=== PATIENT | male | born 1945 | race Caucasian/White ===

== ENCOUNTER 2017-12-23 17:31 | Emergency (ER) | payer OTHER ==
[~2017-12-23] VITALS: Ht 188 cm; Wt 155.0 kg
[2017-12-23] MEDS ORDERED: LANTUS100 UNIT/M SC (18:06)
[2017-12-23] MEDS ORDERED: PRADAXA150 MG PO (18:06)
[2017-12-23] MEDS ORDERED: LANOXIN0.125 MG PO (18:07)
[2017-12-23] MEDS ORDERED: ATORVASTATIN CA40 MG PO (18:08)
[2017-12-23] MEDS ORDERED: LOSARTAN POT50 MG PO (18:09)
[2017-12-23] MEDS ORDERED: RANITIDINE150 M1 PO (18:09)
[2017-12-23] MEDS ORDERED: DILTIAZEM240 MG PO (18:11)
[2017-12-23] MEDS ORDERED: TRAZODONE50 MG PO (18:12)
[2017-12-23] MEDS ORDERED: OXYBUTYNIN5 M1 PO (18:13)
[2017-12-23] MEDS ORDERED: BUSPIRONE5 MG PO (18:15)
[2017-12-23] MEDS ORDERED: GLIPIZIDE5 M2 PO (18:16)
[2017-12-23] MEDS ORDERED: GLIPIZIDE5 MG PO (18:18)
[2017-12-23 18:19] LABS: HEMATOCRIT 44.9 % (39.0-50.0); IMMATURE GRANULOCYTES 0.8 % (0.0-5.0); MEAN CELL VOLUME 89.1 fL CALC (80.0-100.0); MEAN CORPUSCULAR HGB 29.8 pG CALC (26.0-32.0); MEAN CORPUSCULAR HGB CONC 33.4 g/L CALC (32.0-36.0); NEUT# 17.16 thou/uL (1.82-7.42); RED BLOOD COUNT 5.04 mill/uL (4.70-6.10); RED CELL DISTRI WIDTH 14.3 % (11.5-15.5)
[2017-12-23 18:37] LABS: INTERNATIONAL NORMALIZED RATIO 1.1 RATIO (0.7-1.3); PROTHROMBIN TIME 12.4 SECONDS (9.0-12.5)
[2017-12-23 18:55] VITALS: BP 151/82
[2017-12-23 19:02] LABS: ALBUMIN 4.2 g/dL (3.2-5.0); ALKALINE PHOSPHATASE 79 u/l (38-126); ANION GAP 15 (6-22 (CALC)); BILIRUBIN, TOTAL 0.8 mg/dL (0.0-1.4); BUN 14 mg/dL (8-23); BUN/CREATININE RATIO 20 (12-20 (CALC)); CARBON DIOXIDE 28 mmol/l (22-30); CHLORIDE 98 mmol/l (95-108); CREATININE 0.7 mg/dL (0.7-1.3); GFR > 60 ML/MIN (>=60 (CALC)); GFR FOR AFR.AMER. > 60 ML/MIN (>=60 (CALC)); SGOT/AST 21 u/l (19-48); SGPT/ALT 30 u/l (11-66); SODIUM 137 mmol/l (137-146); TOTAL PROTEIN 7.8 g/dL (6.3-8.2)
== END 2017-12-23 18:55 | disposition short-term general hospital (02) | DRG 66 ==
LOC: ED 17:31
PROVIDERS: Emergency Medicine
DX: I63.9 Cerebral infarction, unspecified (principal); R27.0 Ataxia, unspecified; R47.9 Unspecified speech disturbances; I48.91 Unspecified atrial fibrillation; E11.9 Type 2 diabetes mellitus without complications; F32.9 Major depressive disorder, single episode, unspecified; K21.9 Gastro-esophageal reflux disease without esophagitis

== ENCOUNTER 2018-01-13 15:24 | Inpatient (IN) | payer OTHER ==
[~2018-01-13] VITALS: Ht 188 cm; Wt 156.0 kg
[~2018-01-13 15:24] MED LIST: ATORVASTATIN CA40 MG PO; BUSPIRONE5 MG PO; DILTIAZEM240 MG PO; GLIPIZIDE5 M2 PO; GLIPIZIDE5 MG PO; LANOXIN0.125 MG PO; LANTUS100 UNIT/M SC; LOSARTAN POT50 MG PO; OXYBUTYNIN5 M1 PO; PRADAXA150 MG PO; RANITIDINE150 M1 PO; TRAZODONE50 MG PO
[2018-01-13 18:20] LABS: HEMATOCRIT 42.4 % (39.0-50.0); HEMOGLOBIN 14.3 g/dl (14.0-18.0); MEAN CELL VOLUME 89.3 fL CALC (80.0-100.0); MEAN CORPUSCULAR HGB 30.1 pG CALC (26.0-32.0); MEAN CORPUSCULAR HGB CONC 33.7 g/L CALC (32.0-36.0); NEUT# 17.27 thou/uL (1.82-7.42); RED BLOOD COUNT 4.75 mill/uL (4.70-6.10); RED CELL DISTRI WIDTH 14.1 % (11.5-15.5)
[2018-01-13 18:35] LABS: ALBUMIN 4.2 g/dL (3.2-5.0); ALKALINE PHOSPHATASE 72 u/l (38-126); ANION GAP 16 (6-22 (CALC)); BILIRUBIN, TOTAL 0.5 mg/dL (0.0-1.4); BUN 15 mg/dL (8-23); BUN/CREATININE RATIO 21 (12-20 (CALC)); CARBON DIOXIDE 29 mmol/l (22-30); CHLORIDE 101 mmol/l (95-108); CREATININE 0.7 mg/dL (0.7-1.3); GFR > 60 ML/MIN (>=60 (CALC)); GFR FOR AFR.AMER. > 60 ML/MIN (>=60 (CALC)); POTASSIUM 4.1 mmol/l (3.5-5.1); SGOT/AST 22 u/l (19-48); SGPT/ALT 34 u/l (11-66); SODIUM 142 mmol/l (137-146); TOTAL PROTEIN 7.4 g/dL (6.3-8.2)
[2018-01-13 19:34] LABS: URINE BILIRUBIN - DIPSTICK NEGATIVE (NEGATIVE); URINE BLOOD DIPSTICK LARGE (NEGATIVE); URINE COLOR YELLOW; URINE GLUCOSE - DIPSTICK NEGATIVE (NEGATIVE); URINE KETONE TRACE mg/dL (NEGATIVE); URINE LEUK ESTERASE NEGATIVE (NEGATIVE); URINE NITRITE - DIPSTICK NEGATIVE (Negative); URINE PROTEIN - DIPSTICK >=300 mg/dL (NEG-TRACE); URINE SPECIFIC GRAVITY >=1.030
[2018-01-13 19:35] LABS: URINE CLARITY HAZY
[2018-01-13 19:48] LABS: URINE CALCIUM OXALATE CRYSTALS FEW lpf
[2018-01-13 23:00] VITALS: BP 173/88
[2018-01-13 23:15] VITALS: BP 173/88
[2018-01-13 23:30] VITALS: BP 160/89
[2018-01-13 23:45] VITALS: BP 161/84
[2018-01-14] VITALS (8 sets, daily range): BP systolic 127–192; BP diastolic 79–101
[2018-01-14 16:04] LABS: URINE BILIRUBIN - DIPSTICK NEGATIVE (NEGATIVE); URINE BLOOD DIPSTICK MODERATE (NEGATIVE); URINE COLOR YELLOW; URINE GLUCOSE - DIPSTICK NEGATIVE (NEGATIVE); URINE KETONE NEGATIVE (NEGATIVE); URINE LEUK ESTERASE NEGATIVE (Negative); URINE NITRITE - DIPSTICK NEGATIVE (Negative); URINE PH 5.5 (4.5-8.0); URINE PROTEIN - DIPSTICK 100 mg/dL (NEG-TRACE); URINE SPECIFIC GRAVITY >=1.030; URINE UROBILINOGEN - DIPSTICK 0.2 E.U./dL (0.2)
[2018-01-14 16:46] LABS: URINE CLARITY CLEAR
[2018-01-14 16:49] LABS: URINE WBC 0-2 WBC/hpf (0-5)
[2018-01-15] VITALS (7 sets, daily range): BP systolic 121–175; BP diastolic 65–86
[2018-01-15 05:18] LABS: HEMATOCRIT 39.5 % (39.0-50.0); HEMOGLOBIN 13.1 g/dl (14.0-18.0); IMMATURE GRANULOCYTES 0.7 % (0.0-5.0); MEAN CELL VOLUME 91.9 fL CALC (80.0-100.0); MEAN CORPUSCULAR HGB 30.5 pG CALC (26.0-32.0); MEAN CORPUSCULAR HGB CONC 33.2 g/L CALC (32.0-36.0); NEUT# 9.56 thou/uL (1.82-7.42); RED BLOOD COUNT 4.3 mill/uL (4.70-6.10); RED CELL DISTRI WIDTH 14.3 % (11.5-15.5)
[2018-01-15 05:42] LABS: ALBUMIN 3.6 g/dL (3.2-5.0); ALKALINE PHOSPHATASE 70 u/l (38-126); ANION GAP 13 (6-22 (CALC)); BILIRUBIN, TOTAL 0.7 mg/dL (0.0-1.4); BUN 10 mg/dL (8-23); BUN/CREATININE RATIO 15 (12-20 (CALC)); CARBON DIOXIDE 30 mmol/l (22-30); CHLORIDE 100 mmol/l (95-108); CREATININE 0.7 mg/dL (0.7-1.3); GFR > 60 ML/MIN (>=60 (CALC)); GFR FOR AFR.AMER. > 60 ML/MIN (>=60 (CALC)); MAGNESIUM 1.7 mg/dL (1.6-2.3); POTASSIUM 3.6 mmol/l (3.5-5.1); SGOT/AST 20 u/l (19-48); SGPT/ALT 24 u/l (11-66); SODIUM 139 mmol/l (137-146); TOTAL PROTEIN 6.6 g/dL (6.3-8.2)
[2018-01-15] MEDS ORDERED: TRAZODONE50 MG PO (11:04)
[2018-01-16 04:15] VITALS: BP 148/92
[2018-01-16 07:46] VITALS: BP 150/80
[2018-01-16 11:07] VITALS: BP 128/70
[2018-01-16 15:06] VITALS: BP 155/75
[2018-01-16 20:00] VITALS: BP 134/71
[2018-01-16 23:48] VITALS: BP 140/79
[2018-01-17 04:15] VITALS: BP 152/89
[2018-01-17 05:13] LABS: HEMATOCRIT 37.3 % (39.0-50.0); HEMOGLOBIN 12.3 g/dl (14.0-18.0); MEAN CELL VOLUME 92.6 fL CALC (80.0-100.0); MEAN CORPUSCULAR HGB 30.5 pG CALC (26.0-32.0); NEUT# 8.54 thou/uL (1.82-7.42); RED BLOOD COUNT 4.03 mill/uL (4.70-6.10); RED CELL DISTRI WIDTH 14.3 % (11.5-15.5)
[2018-01-17 05:35] LABS: ALBUMIN 3.2 g/dL (3.2-5.0); ALKALINE PHOSPHATASE 63 u/l (38-126); ANION GAP 12 (6-22 (CALC)); BILIRUBIN, TOTAL 0.5 mg/dL (0.0-1.4); BUN 11 mg/dL (8-23); BUN/CREATININE RATIO 18 (12-20 (CALC)); CARBON DIOXIDE 31 mmol/l (22-30); CHLORIDE 101 mmol/l (95-108); CREATININE 0.6 mg/dL (0.7-1.3); GFR > 60 ML/MIN (>=60 (CALC)); GFR FOR AFR.AMER. > 60 ML/MIN (>=60 (CALC)); MAGNESIUM 1.8 mg/dL (1.6-2.3); POTASSIUM 3.6 mmol/l (3.5-5.1); SGOT/AST 13 u/l (19-48); SGPT/ALT 18 u/l (11-66); SODIUM 141 mmol/l (137-146); TOTAL PROTEIN 5.9 g/dL (6.3-8.2)
[2018-01-17 08:19] VITALS: BP 157/80
[2018-01-17 11:04] VITALS: BP 147/90
[2018-01-17 14:54] VITALS: BP 141/78
[2018-01-17] MEDS ORDERED: XALATAN 0.005%2.5 ML OU (16:35)
[2018-01-17] MEDS ORDERED: DORZOLAMIDE HCL/1 ML OU (16:36)
[2018-01-17 20:31] VITALS: BP 148/80
[2018-01-18 00:57] VITALS: BP 147/82
[2018-01-18 05:25] VITALS: BP 155/85
[2018-01-18 08:50] VITALS: BP 158/101
[2018-01-18 12:15] VITALS: BP 142/73
[2018-01-18 15:30] VITALS: BP 152/68
[2018-01-18 19:14] VITALS: BP 154/87
[2018-01-19] VITALS: BP 145/60
[2018-01-19 04:25] VITALS: BP 150/79
[2018-01-19 05:45] LABS: ALBUMIN 3.7 g/dL (3.2-5.0); ALKALINE PHOSPHATASE 75 u/l (38-126); ANION GAP 13 (6-22 (CALC)); BILIRUBIN, TOTAL 0.7 mg/dL (0.0-1.4); BUN 10 mg/dL (8-23); BUN/CREATININE RATIO 15 (12-20 (CALC)); CARBON DIOXIDE 32 mmol/l (22-30); CHLORIDE 101 mmol/l (95-108); CREATININE 0.7 mg/dL (0.7-1.3); GFR > 60 ML/MIN (>=60 (CALC)); GFR FOR AFR.AMER. > 60 ML/MIN (>=60 (CALC)); MAGNESIUM 1.8 mg/dL (1.6-2.3); SGOT/AST 17 u/l (19-48); SGPT/ALT 16 u/l (11-66); SODIUM 142 mmol/l (137-146); TOTAL PROTEIN 6.9 g/dL (6.3-8.2)
[2018-01-19 06:04] LABS: HEMATOCRIT 41.1 % (39.0-50.0); HEMOGLOBIN 13.4 g/dl (14.0-18.0); MEAN CELL VOLUME 92.8 fL CALC (80.0-100.0); MEAN CORPUSCULAR HGB 30.2 pG CALC (26.0-32.0); MEAN CORPUSCULAR HGB CONC 32.6 g/L CALC (32.0-36.0); NEUT# 8.9 thou/uL (1.82-7.42); RED BLOOD COUNT 4.43 mill/uL (4.70-6.10); RED CELL DISTRI WIDTH 14.3 % (11.5-15.5)
[2018-01-19 07:40] VITALS: BP 154/67
[2018-01-19 11:45] VITALS: BP 143/72
[2018-01-19 15:20] VITALS: BP 149/86
[2018-01-19 19:00] VITALS: BP 141/73
[2018-01-20] VITALS (7 sets, daily range): BP systolic 134–151; BP diastolic 79–89
[2018-01-20 04:43] LABS: HEMATOCRIT 36.2 % (39.0-50.0); HEMOGLOBIN 12.1 g/dl (14.0-18.0); MEAN CELL VOLUME 91.4 fL CALC (80.0-100.0); MEAN CORPUSCULAR HGB 30.6 pG CALC (26.0-32.0); MEAN CORPUSCULAR HGB CONC 33.4 g/L CALC (32.0-36.0); RED BLOOD COUNT 3.96 mill/uL (4.70-6.10); RED CELL DISTRI WIDTH 14.1 % (11.5-15.5)
[2018-01-20 04:56] LABS: ANION GAP 11 (6-22 (CALC)); BUN 9 mg/dL (8-23); BUN/CREATININE RATIO 15 (12-20 (CALC)); CARBON DIOXIDE 32 mmol/l (22-30); CHLORIDE 101 mmol/l (95-108); CREATININE 0.6 mg/dL (0.7-1.3); GFR > 60 ML/MIN (>=60 (CALC)); GFR FOR AFR.AMER. > 60 ML/MIN (>=60 (CALC)); MAGNESIUM 1.9 mg/dL (1.6-2.3); POTASSIUM 3.7 mmol/l (3.5-5.1); SODIUM 140 mmol/l (137-146)
[2018-01-21] VITALS (10 sets, daily range): BP systolic 125–170; BP diastolic 60–92
[2018-01-21 05:16] LABS: HEMATOCRIT 39.2 % (39.0-50.0); HEMOGLOBIN 13.1 g/dl (14.0-18.0); IMMATURE GRANULOCYTES 0.9 % (0.0-5.0); MEAN CELL VOLUME 90.7 fL CALC (80.0-100.0); MEAN CORPUSCULAR HGB 30.3 pG CALC (26.0-32.0); MEAN CORPUSCULAR HGB CONC 33.4 g/L CALC (32.0-36.0); NEUT# 8.27 thou/uL (1.82-7.42); RED BLOOD COUNT 4.32 mill/uL (4.70-6.10); RED CELL DISTRI WIDTH 14.2 % (11.5-15.5)
[2018-01-21 05:49] LABS: ALBUMIN 3.4 g/dL (3.2-5.0); ALKALINE PHOSPHATASE 72 u/l (38-126); ANION GAP 11 (6-22 (CALC)); BILIRUBIN, TOTAL 0.6 mg/dL (0.0-1.4); BUN 10 mg/dL (8-23); BUN/CREATININE RATIO 15 (12-20 (CALC)); CARBON DIOXIDE 34 mmol/l (22-30); CHLORIDE 101 mmol/l (95-108); CREATININE 0.7 mg/dL (0.7-1.3); GFR > 60 ML/MIN (>=60 (CALC)); GFR FOR AFR.AMER. > 60 ML/MIN (>=60 (CALC)); INTERNATIONAL NORMALIZED RATIO 1.1 RATIO (0.7-1.3); MAGNESIUM 1.8 mg/dL (1.6-2.3); POTASSIUM 4.2 mmol/l (3.5-5.1); SGOT/AST 17 u/l (19-48); SGPT/ALT 20 u/l (11-66); SODIUM 142 mmol/l (137-146); TOTAL PROTEIN 6.5 g/dL (6.3-8.2)
[2018-01-22] VITALS (7 sets, daily range): BP systolic 128–154; BP diastolic 67–85
[2018-01-23 04:50] VITALS: BP 147/89
[2018-01-23 06:00] LABS: HEMATOCRIT 38.7 % (39.0-50.0); HEMOGLOBIN 12.7 g/dl (14.0-18.0); MEAN CORPUSCULAR HGB 30.5 pG CALC (26.0-32.0); MEAN CORPUSCULAR HGB CONC 32.8 g/L CALC (32.0-36.0); NEUT# 8.18 thou/uL (1.82-7.42); RED BLOOD COUNT 4.16 mill/uL (4.70-6.10); RED CELL DISTRI WIDTH 14.5 % (11.5-15.5)
[2018-01-23 06:23] LABS: ALBUMIN 3.3 g/dL (3.2-5.0); ALKALINE PHOSPHATASE 67 u/l (38-126); ANION GAP 12 (6-22 (CALC)); BILIRUBIN, TOTAL 0.6 mg/dL (0.0-1.4); BUN 12 mg/dL (8-23); BUN/CREATININE RATIO 17 (12-20 (CALC)); CARBON DIOXIDE 32 mmol/l (22-30); CHLORIDE 99 mmol/l (95-108); CREATININE 0.7 mg/dL (0.7-1.3); GFR > 60 ML/MIN (>=60 (CALC)); GFR FOR AFR.AMER. > 60 ML/MIN (>=60 (CALC)); MAGNESIUM 1.7 mg/dL (1.6-2.3); SGOT/AST 14 u/l (19-48); SGPT/ALT 16 u/l (11-66); SODIUM 139 mmol/l (137-146); TOTAL PROTEIN 6.2 g/dL (6.3-8.2)
[2018-01-23 06:31] LABS: ANION GAP 13 (6-22 (CALC)); BUN 12 mg/dL (8-23); BUN/CREATININE RATIO 17 (12-20 (CALC)); CARBON DIOXIDE 32 mmol/l (22-30); CHLORIDE 99 mmol/l (95-108); CREATININE 0.7 mg/dL (0.7-1.3); GFR > 60 ML/MIN (>=60 (CALC)); GFR FOR AFR.AMER. > 60 ML/MIN (>=60 (CALC)); SODIUM 139 mmol/l (137-146)
[2018-01-23 07:40] VITALS: BP 145/85
[2018-01-23 11:02] VITALS: BP 143/67
[2018-01-23 15:11] VITALS: BP 150/63
[2018-01-23] MEDS ORDERED: PERCOCET 10/31 COMBO PO (15:25)
== END 2018-01-23 16:57 | DRG 493 ==
LOC: ED 15:24 → ED-I 17:40 → ED 18:26 → MS2 18:27
PROVIDERS: Emergency Medicine; Internal Medicine Nephrology; Nurse Practitioner Family; ADMIT Internal Medicine; ATTEND Internal Medicine
PROC: 0QSJXZZ Reposition Right Fibula, External Approach (ICD-10-PCS; 2018-01-13)
PROC: 0QSGXZZ Reposition Right Tibia, External Approach (ICD-10-PCS; 2018-01-13)
PROC: 2W3QXYZ Immobilization of Right Lower Leg using Other Device (ICD-10-PCS; 2018-01-13)
PROC: 0QSJXZZ Reposition Right Fibula, External Approach (ICD-10-PCS; 2018-01-13)
PROC: 5A09357 Assistance with Respiratory Ventilation, Less than 24 Consecutive Hours, Continuous Positive Airway Pressure (ICD-10-PCS; 2018-01-14)
PROC: 0QSJ04Z Reposition Right Fibula with Internal Fixation Device, Open Approach (ICD-10-PCS; principal; 2018-01-21)
PROC: 0SSF04Z Reposition Right Ankle Joint with Internal Fixation Device, Open Approach (ICD-10-PCS; 2018-01-21)
PROC: 0SBF4ZZ Excision of Right Ankle Joint, Percutaneous Endoscopic Approach (ICD-10-PCS; 2018-01-21)
PROC: 0QPGX5Z Removal of External Fixation Device from Right Tibia, External Approach (ICD-10-PCS; 2018-01-21)
PROC: 0T9B70Z Drainage of Bladder with Drainage Device, Via Natural or Artificial Opening (ICD-10-PCS; 2018-01-22)
DX: S82.851A Displaced trimalleolar fracture of right lower leg, initial encounter for closed fracture (principal); Z68.41 Body mass index [BMI] 40.0-44.9, adult; E87.2 Acidosis; S93.431A Sprain of tibiofibular ligament of right ankle, initial encounter; S80.811A Abrasion, right lower leg, initial encounter; I48.2 Chronic atrial fibrillation; F32.9 Major depressive disorder, single episode, unspecified; K21.9 Gastro-esophageal reflux disease without esophagitis; W17.89XA Other fall from one level to another, initial encounter; Y92.009 Unspecified place in unspecified non-institutional (private) residence as the place of occurrence of the external cause; Z79.02 Long term (current) use of antithrombotics/antiplatelets; E66.01 Morbid (severe) obesity due to excess calories; Z91.11 Patient's noncompliance with dietary regimen; G47.33 Obstructive sleep apnea (adult) (pediatric); D64.9 Anemia, unspecified; N20.0 Calculus of kidney; E11.42 Type 2 diabetes mellitus with diabetic polyneuropathy; E78.5 Hyperlipidemia, unspecified; F41.0 Panic disorder [episodic paroxysmal anxiety]; I10 Essential (primary) hypertension; K59.03 Drug induced constipation; T40.605A Adverse effect of unspecified narcotics, initial encounter; R33.8 Other retention of urine
CPT/HCPCS: C1713; J2710